=== PATIENT | female | born 1945 | race Caucasian/White ===

== ENCOUNTER 2025-02-11 07:21 | Day surgery (SDC) | payer MEDICARE ==
[2025-02-11] MEDS ORDERED: Propofol 200 MG/20 ML SDV ONE ×2 (07:38→09:19)
[2025-02-11] MEDS ORDERED: fentaNYL 50 MCG/ML SDV ONE (07:38)
[2025-02-11] MEDS: Lactated Ringers 1,000 ML IV SCH (08:16)
[2025-02-11] MEDS ORDERED: Lactated Ringers 1,000 ML ONE (09:31)
[2025-02-11 10:34] VITALS: BP 158/84; PULSE 50
== END 2025-02-11 10:50 | disposition home or self-care (01) ==
LOC: JP.SDS 07:21
PROVIDERS: ATTEND Surgery
DX: K57.30 Diverticulosis of large intestine without perforation or abscess without bleeding (principal)
CPT/HCPCS: 00812; 45378; J2704; J3010; J7120